=== PATIENT | female | born 2005 | race Caucasian/White ===

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

== ENCOUNTER 2024-05-08 11:20 | Outpatient (REF) | payer OTHER, SELFPAY ==
[2024-05-09 11:39] LABS: Chlamydia Result Negative (Negative); GC Result Negative (Negative)
== END 2024-05-08 11:21 | disposition home or self-care (01) ==
LOC: LBN 11:20
PROVIDERS: PCP Nurse Practitioner Pediatrics; Visit Provider Nurse Practitioner Women's Health
DX: Z11.3 Encounter for screening for infections with a predominantly sexual mode of transmission (principal); Z30.41 Encounter for surveillance of contraceptive pills; Z30.430 Encounter for insertion of intrauterine contraceptive device
CPT/HCPCS: 87491; 87591

== ENCOUNTER 2025-05-23 09:42 | Outpatient (REF) | payer OTHER, SELFPAY ==
--- NOTE | 2025-05-23 09:00 | PAPFT_PTH ---
PATIENT: Rosaline Ray LOC: [place] U#:[id number] AGE/SX: 19/F ROOM: RE05/23/[address]: Ilana Mcgee MD : 2005 BED: DIS: 05/23/2025 SPEC #: [id number] RECD: 05/23/25 12:55 STATUS: JOAQUINA REQ #: [id number] RYAN: 05/23/25 09:[address]: Ilana Mcgee DEPT: [facility] Cytology RECD BY: Tierra Odom ENTERED: 05/23/25 12:56 SP TYPE: PAPFT OTHR DR: Asim Alvarez NP Tissues: 1 - CX/ENDOCX FOR PAP SMEARS Procedures: PAP THIN PREP/[facility] Screening HPV DNA PROBE Comments: [id number] (HPV 16 & 18/45) (CHLAMYDIA/GC)
[2025-05-28 11:53] LABS: Chlamydia Result Negative (Negative); GC Result Negative (Negative)
== END 2025-05-23 09:43 | disposition home or self-care (01) ==
LOC: LBN 09:42
PROVIDERS: PCP Nurse Practitioner Pediatrics; Visit Provider Obstetrics & Gynecology
DX: Z12.4 Encounter for screening for malignant neoplasm of cervix (principal)
CPT/HCPCS: 87491; 87591; 88142; 87624